=== PATIENT | female | born 1990 | race Hispanic/Latino ===

== ENCOUNTER 2019-06-16 21:34 | Emergency (ER) | payer OTHER ==
[~2019-06-16] VITALS: Ht 160 cm; Wt 53.0 kg
[2019-06-16] MEDS ORDERED: TRAMADOL HCL50 MG PO (23:42)
[2019-06-16] MEDS ORDERED: VOLTAREN - GENE75 MG PO (23:42)
[2019-06-16 23:55] VITALS: BP 113/74
== END 2019-06-16 23:55 | disposition home or self-care (01) | DRG 605 ==
LOC: ED 21:34
DX: S00.83XA Contusion of other part of head, initial encounter (principal); V43.52XA Car driver injured in collision with other type car in traffic accident, initial encounter; R42 Dizziness and giddiness